=== PATIENT | female | born 1935 | race Caucasian/White ===

== ENCOUNTER 2016-08-21 13:52 | Emergency (ER) | payer BC, MEDICARE ==
[~2016-08-21] VITALS: Ht 162.6 cm; Wt 63.5 kg
--- NOTE | 2016-08-21 14:00 | NUR ---
PT DEEPTI FOR S/P TRIP AND FALL OUTSIDE vivit AND HIT HER FACE. NOTED LACERATION ABOVE UPPER LIP AND NOSE AREA. PT AAOX3. DENIES KO. DENIES ANY OTHER INJURY. VSYolanda. AT FOR EVAL. SAFETY AND COMFORT MEASURES PROVIDED. WILL MONITOR.
[2016-08-21] MEDS ORDERED: LIDOCAINE 1%-EPI 1:100,000 20 ML VIAL ONE (14:14)
[2016-08-21] MEDS ORDERED: HYDROCODONE/APAP 5/325MG 1 EACH TABLET ONE ×2 (14:14→16:44)
--- NOTE | 2016-08-21 14:27 | NUR ---
PT MEDICATED ORDERED.
[2016-08-21] MEDS ORDERED: HYDROCODONE/APAP 5/325MG 1 EACH TABLET PO ONE (14:30)
[2016-08-21] MEDS ORDERED: LIDOCAINE 1%-EPI 1:100,000 20 ML VIAL TP ONE (14:30)
[2016-08-21 15:58] LABS: HEMATOCRIT 40 % (33-45); HEMOGLOBIN 13.2 g/dL (11.5-14.8); MEAN CORPUSCULAR HEMOGLOBIN 30 PG (26.0-33.0); MEAN CORPUSCULAR HGB CONC 33 g/dl (31.0-36.0); MEAN CORPUSCULAR VOLUME 90 fL (82-100); NEUTROPHILS % (AUTO) 79.1 % (43.0-81.0); PLATELET COUNT (AUTO) 279 /CMM (150-450); RDW COEFFICIENT OF VARIATION 13.6 (11.5-15.0); RED BLOOD CELL COUNT(AUTO) 4.41 MIL/uL (4.0-5.2)
[2016-08-21 15:59] LABS: BASOPHILS # (AUTO) 0.1 /CMM (0.0-0.2); BASOPHILS % (AUTO) 0.7 % (0.0-2.0); EOSINOPHILS # (AUTO) 0.5 /CMM (0.0-0.7); EOSINOPHILS % (AUTO) 5.5 % (0.0-6.0); LYMPHOCYTES % (AUTO) 11.3 % (20.0-44.0); MONOCYTES # (AUTO) 0.3 /CMM (0.1-1.30); MONOCYTES % (AUTO) 3.4 % (2.0-12.0); NEUTROPHILS # (AUTO) 7.1 /CMM (1.8-8.9)
[2016-08-21 16:07] LABS: CALCIUM, SERUM 9.8 mg/dL (8.5-10.1); CREATININE 0.9 mg/dL (0.6-1.3); POTASSIUM 4.6 mmol/L (3.5-5.1)
[2016-08-21 16:09] LABS: INR 0.93 (0.87-1.13); PROTHROMBIN TIME 9.7 SECS (9.5-12.7)
[2016-08-21] MEDS ORDERED: TDAP [DIPH/PERTUSSIS/TET] 0.5 ML VIAL IM ONE ×2 (16:23→16:30)
--- NOTE | 2016-08-21 16:31 | NUR ---
WOUND CARE DONE BY AURORA GUAJARDO AT BS.
[2016-08-21] MEDS ORDERED: HYDROCODONE/APAP 5/325MG 1 EACH TABLET PO STA (16:35)
--- NOTE | 2016-08-21 16:41 | NUR ---
CALLED ROBBIE TO READ CT
--- NOTE | 2016-08-21 17:00 | NUR ---
PA AT BS FOR WOUND CARE/SUTURE.
[2016-08-21 17:35] VITALS: BP 116/78
[2016-08-21] MEDS ORDERED: BACITRACIN ZINC OINT PACKET 1 EA PACKET TP ONE (17:44)
--- NOTE | 2016-08-21 17:50 | NUR ---
Note james in EDM - 08/21/16 at 1810 by ZAC Patient discharged to home in stable condition. Written and verbal after care instructions given. Patient verbalizes understanding of instruction. IV removed. Catheter intact and site benign. Pressure and 4x4 applied to site. No bleeding noted.
--- NOTE | 2016-08-21 18:10 | NUR ---
Patient discharged to home in stable condition. Written and verbal after care instructions given. Patient verbalizes understanding of instruction. Pt ambulatory with a steady gait.
== END 2016-08-21 18:11 | disposition home or self-care (01) ==
LOC: ER 13:54
DX: S02.2XXA Fracture of nasal bones, initial encounter for closed fracture (principal); S01.511A Laceration without foreign body of lip, initial encounter; S80.01XA Contusion of right knee, initial encounter; I10 Essential (primary) hypertension; E11.9 Type 2 diabetes mellitus without complications; I99.8 Other disorder of circulatory system; Z88.6 Allergy status to analgesic agent; W19.XXXA Unspecified fall, initial encounter; Y93.9 Activity, unspecified; Y92.89 Other specified places as the place of occurrence of the external cause; Y99.9 Unspecified external cause status
CPT/HCPCS: 12051; 36415; 70450; 70486; 72125; 73030; 73130 ×2; 73564 ×2; 80048; 85025; 85730; 90471; 90715; 99285; A4606; A6402; A6403; J3490; Z7610

== ENCOUNTER 2016-08-27 11:03 | Emergency (ER) | payer MEDICARE, BC ==
[~2016-08-27] VITALS: Ht 162.6 cm; Wt 63.5 kg
[2016-08-27 11:03] VITALS: BP 125/69
== END 2016-08-27 11:58 | disposition home or self-care (01) ==
LOC: IVT 11:08
DX: S01.511D Laceration without foreign body of lip, subsequent encounter (principal); I10 Essential (primary) hypertension; E11.9 Type 2 diabetes mellitus without complications; Z88.5 Allergy status to narcotic agent
CPT/HCPCS: 99281; A4606; Z7502; Z7610

== ENCOUNTER 2016-09-02 13:00 | Emergency (ER) | payer MEDICARE, BC ==
[~2016-09-02] VITALS: Ht 154.9 cm; Wt 67.6 kg
[2016-09-02 13:04] VITALS: BP 121/53
== END 2016-09-02 14:08 | disposition home or self-care (01) ==
LOC: ER 13:03
DX: S01.511D Laceration without foreign body of lip, subsequent encounter (principal); W18.09XD Striking against other object with subsequent fall, subsequent encounter; I10 Essential (primary) hypertension; E11.9 Type 2 diabetes mellitus without complications; Z88.5 Allergy status to narcotic agent
CPT/HCPCS: A4606; Z7502; Z7610

== ENCOUNTER 2017-10-02 22:35 | Emergency (ER) | payer BC, OTHER ==
[~2017-10-02] VITALS: Ht 154.9 cm; Wt 78.9 kg
--- NOTE | 2017-10-02 22:35 | NUR ---
TO BED 8 BIB PARAMEDICS C/O SOB, OS SAT 90% PRE EMS REPORT, (+) PRODUCTIVE COUGH NOTED. CRACKLES HEARD BILATERALLY ON AUSCULTATION. PT AAOX4, PLACE PT ON CARDIAC MONITORING, CONTINUOUS POX, O2@2L/NC, O2 SAT 95%. ER MD AT BEDSIDE TO EVAL PT WITH ORDERS RECEIVED. WILL CARRY OUT ORDERS.
--- NOTE | 2017-10-02 22:43 | NUR ---
CALLED RADIOLOGY FOR STAT CXR PER DR. MEADE.
[2017-10-02 23:02] LABS: HEMATOCRIT 37 % (33-45); HEMOGLOBIN 12.5 g/dL (11.5-14.8); LYMPHOCYTES % (AUTO) 13.4 % (20.0-44.0); MEAN CORPUSCULAR HGB CONC 34 g/dl (31.0-36.0); MEAN CORPUSCULAR VOLUME 89 fL (82-100); MONOCYTES % (AUTO) 4.1 % (2.0-12.0); NEUTROPHILS % (AUTO) 79.1 % (43.0-81.0); PLATELET COUNT (AUTO) 260 /CMM (150-450); RDW COEFFICIENT OF VARIATION 14.4 (11.5-15.0); RED BLOOD CELL COUNT(AUTO) 4.11 MIL/uL (4.0-5.2); WHITE BLOOD COUNT (AUTO) 9.1 K/uL (4.3-11.0)
[2017-10-02 23:03] LABS: BASOPHILS # (AUTO) 0.1 /CMM (0.0-0.2); BASOPHILS % (AUTO) 0.7 % (0.0-2.0); EOSINOPHILS % (AUTO) 2.7 % (0.0-6.0); LYMPHOCYTES # (AUTO) 1.2 /CMM (0.8-4.8); MONOCYTES # (AUTO) 0.4 /CMM (0.1-1.30); NEUTROPHILS # (AUTO) 7.2 /CMM (1.8-8.9)
--- NOTE | 2017-10-02 23:03 | NUR ---
PATIENTS , SYLVESTER, CALLED TO SEE THE STATUS ON HIS . TOLD HIM THAT WE WOULD GIVE HIM A CALL BACK. PHONE NUMBER: [phone].
[2017-10-02] MEDS ORDERED: ACETAMINOPHEN ES 500 MG TABLET ONE (23:09)
[2017-10-02 23:15] LABS: CALCIUM, SERUM 8.4 mg/dL (8.5-10.1); CARBON DIOXIDE 25 mmol/L (21-32); CHLORIDE 104 mmol/L (98-107); CREATININE 0.8 mg/dL (0.6-1.3); GLUCOSE 127 mg/dL (74-106); POTASSIUM 4.1 mmol/L (3.5-5.1); SODIUM SERUM 138 mmol/L (136-145); UREA NITROGEN, BLOOD 15 mg/dL (7-18)
[2017-10-02 23:18] LABS: INR 0.87 (0.87-1.13)
[2017-10-02 23:23] LABS: ALBUMIN 2.9 g/dL (3.4-5.0); BILIRUBIN,DIRECT 0.1 mg/dL (0.0-0.2); BILIRUBIN,TOTAL 0.2 mg/dL (0.2-1.0); TOTAL PROTEIN, SERUM 6.8 g/dL (6.4-8.2)
[2017-10-02 23:24] LABS: TROPONIN I < 0.017 ng/mL (0.00-0.056)
[2017-10-02] MEDS ORDERED: ACETAMINOPHEN ES 500 MG TABLET PO ONE (23:30)
[2017-10-02] MEDS ORDERED: methylPREDNISolone SOD SUCC 125 MG/2ML VIAL ONE (23:41)
--- NOTE | 2017-10-02 23:41 | NUR ---
[facility] CALLED FOR TRANSFER. WAITING FOR MD CALL BACK .
--- NOTE | 2017-10-02 23:45 | NUR ---
RT AT BEDSIDE TO GIVE HHN TX.
[2017-10-02] MEDS ORDERED: ALBUTEROL FS 2.5 MG/3 ML VIAL.NEB ONE (23:54)
[2017-10-02] MEDS ORDERED: IPRATROPIUM NEB FS 0.5 MG/2.5 ML AMPUL.NEB ONE (23:54)
[2017-10-03] MEDS ORDERED: methylPREDNISolone SOD SUCC 125 MG/2ML VIAL IV ONE
[2017-10-03] MEDS ORDERED: IPRATROPIUM NEB FS 0.5 MG/2.5 ML AMPUL.NEB NEB ONE
[2017-10-03] MEDS ORDERED: ALBUTEROL FS 2.5 MG/3 ML VIAL.NEB NEB ONE
--- NOTE | 2017-10-03 00:15 | NUR ---
AURORA NOBLES TALKING TO JIMENEZ JULES MD.
--- NOTE | 2017-10-03 02:20 | NUR ---
SPOKE TO [facility] TRANSFER INFO RECEIVED. PT WILL BE GOING TO [facility] [id number], ACCEPTING MD. JAMMIE Montelongo PHONE NUMBER FOR REPORT . WILL CALL FOR REPORT.
--- NOTE | 2017-10-03 02:40 | NUR ---
REPORT CALLED TO [facility] LITTLE PEDERSON. AWAITING [facility].
--- NOTE | 2017-10-03 03:31 | NUR ---
[facility] TRANSPORT AT BEDSIDE REPORT GIVEN TO SHROUD LINE TIER
[2017-10-03 03:39] VITALS: BP 127/58
== END 2017-10-03 03:40 | disposition short-term general hospital (02) ==
LOC: ER 22:36
DX: J90 Pleural effusion, not elsewhere classified (principal); R06.03 Acute respiratory distress; J91.0 Malignant pleural effusion; E11.9 Type 2 diabetes mellitus without complications; I10 Essential (primary) hypertension; J44.9 Chronic obstructive pulmonary disease, unspecified; Z85.118 Personal history of other malignant neoplasm of bronchus and lung; Z88.5 Allergy status to narcotic agent; Z60.2 Problems related to living alone
CPT/HCPCS: 36415; 71045-TC; 80048-TC; 80076-TC; 83605-TC; 84484-TC; 85025-TC; 85730-TC; 87040-TC; A4606; J2930; Z7610

== ENCOUNTER 2018-07-02 04:27 | Emergency (ER) | payer BC, OTHER ==
[~2018-07-02] VITALS: Ht 160 cm; Wt 68.0 kg
--- NOTE | 2018-07-02 04:35 | NUR ---
PT BIBRA C/C ABD PAIN X 2 HRS. -N/V, -DIZZINESS, -SOB. PT AOX4. PT ON MONITOR IN BED 9 WITH FAMILY AT BEDSIDE. WILL CONTINUE TO MONITOR.
--- NOTE | 2018-07-02 04:36 | NUR ---
AT BEDSIDE FOR EVAL
--- NOTE | 2018-07-02 04:44 | NUR ---
BLOOD DRAWN AND GIVEN TO LAB
--- NOTE | 2018-07-02 04:45 | NUR ---
RADIOLOGY AT BEDSIDE FOR XRAY
[2018-07-02] MEDS ORDERED: ONDANSETRON HCL/PF 4 MG/2 ML VIAL ONE (04:48)
[2018-07-02] MEDS ORDERED: FENTANYL PF 100MCG/2ML AMPUL ONE ×2 (04:48→05:29)
--- NOTE | 2018-07-02 04:49 | NUR ---
TECH AT BEDSIDE FOR EKG
[2018-07-02 04:52] LABS: BASOPHILS # (AUTO) 0.1 /CMM (0.0-0.2); BASOPHILS % (AUTO) 0.5 % (0.0-2.0); EOSINOPHILS % (AUTO) 2.3 % (0.0-6.0); HEMATOCRIT 32 % (33-45); HEMOGLOBIN 10.6 g/dL (11.5-14.8); LYMPHOCYTES # (AUTO) 0.3 /CMM (0.8-4.8); LYMPHOCYTES % (AUTO) 3.2 % (20.0-44.0); MEAN CORPUSCULAR HGB CONC 34 g/dl (31.0-36.0); MEAN CORPUSCULAR VOLUME 89 fL (82-100); MONOCYTES # (AUTO) 0.2 /CMM (0.1-1.30); MONOCYTES % (AUTO) 1.8 % (2.0-12.0); NEUTROPHILS # (AUTO) 10.1 /CMM (1.8-8.9); NEUTROPHILS % (AUTO) 92.2 % (43.0-81.0); PLATELET COUNT (AUTO) 231 /CMM (150-450); RED BLOOD CELL COUNT(AUTO) 3.55 MIL/uL (4.0-5.2)
[2018-07-02] MEDS ORDERED: ONDANSETRON HCL/PF 4 MG/2 ML VIAL IV ONE (05:00)
[2018-07-02] MEDS ORDERED: IV NS 0.9% 1,000 ML BAG IV ONE (05:00)
[2018-07-02] MEDS ORDERED: FENTANYL PF 100MCG/2ML AMPUL IV ONE ×2 (05:00→05:30)
[2018-07-02 05:01] LABS: CALCIUM, SERUM 9.1 mg/dL (8.5-10.1); CARBON DIOXIDE 28 mmol/L (21-32); CHLORIDE 100 mmol/L (98-107); CREATININE 0.9 mg/dL (0.6-1.3); GLUCOSE 178 mg/dL (74-106); POTASSIUM 3.4 mmol/L (3.5-5.1); SODIUM SERUM 137 mmol/L (136-145); UREA NITROGEN, BLOOD 14 mg/dL (7-18)
[2018-07-02 05:09] LABS: ALANINE AMINOTRANSFERASE 20 U/L (12-78); ALBUMIN 3.3 g/dL (3.4-5.0); ALKALINE PHOSPHATASE 94 U/L (46-116); ASPARTATE AMINOTRANSFERASE 16 U/L (15-37); BILIRUBIN,DIRECT 0.1 mg/dL (0.0-0.2); BILIRUBIN,TOTAL 0.3 mg/dL (0.2-1.0)
[2018-07-02 05:13] LABS: LIPASE 1933 U/L (73-393)
--- NOTE | 2018-07-02 05:25 | NUR ---
CALLED [facility] TRANSFER REQUEST.
[2018-07-02] MEDS ORDERED: VANCOMYCIN 1 GM in IV D5W 250 ML IV ONE (05:30)
[2018-07-02] MEDS ORDERED: PIPERACILLIN /TAZOBACTAM 3.375 G in IV D5W 50 ML IV ONE (05:30)
--- NOTE | 2018-07-02 05:33 | NUR ---
DR. MORENO SPOKE WITH [facility]
--- NOTE | 2018-07-02 05:34 | NUR ---
DR MAGAÑA IS THE ACCEPTING AT [facility]UROR[facility] NO[facility].
[2018-07-02] MEDS ORDERED: PIPERACILLIN /TAZOBACTAM 3.375 G VIAL IV ONE (05:43)
[2018-07-02] MEDS ORDERED: FAMOTIDINE/PF INJ 20 MG/2 ML VIAL IV ONE ×2 (05:43→06:00)
[2018-07-02] MEDS ORDERED: VANCOMYCIN 1 GM VIAL ONE (05:43)
--- NOTE | 2018-07-02 06:15 | NUR ---
URINE COLLECTED AND SENT TO LAB
[2018-07-02 06:24] LABS: APPEARANCE,URINE CLEAR (CLEAR); BILIRUBIN,URINE NEGATIVE (NEGATIVE); BLOOD, URINE NEGATIVE Ery/uL (NEGATIVE); COLOR,URINE YELLOW (YELLOW); KETONES,URINE NEGATIVE (NEGATIVE); LEUKOCYTE ESTERASE ,URINE NEGATIVE (NEGATIVE); NITRITE, URINE NEGATIVE (NEGATIVE); PH,URINE 5.5 (5.0-8.0); PROTEIN,URINE NEGATIVE (NEGATIVE); UGLUCOSE NEGATIVE (NEGATIVE); UROBILINOGEN,URINE 0.2 EU/dL (0.2)
[2018-07-02] MEDS ORDERED: HYDROMORPHONE 1 MG/1 ML DISP.SYRIN IV ONE (06:30)
[2018-07-02] MEDS ORDERED: HYDROMORPHONE 1 MG/1 ML DISP.SYRIN ONE (06:32)
--- NOTE | 2018-07-02 06:35 | NUR ---
SPOKE WITH [facility], WILL CALL BACK WHEN THEY FIND INTERNAL MED MD TO ACCEPT.
[2018-07-02] MEDS ORDERED: LANS30CA54 PO (07:22)
[2018-07-02] MEDS ORDERED: SERT50TA PO (07:22)
[2018-07-02] MEDS ORDERED: LOSA25TA3 PO (07:22)
[2018-07-02] MEDS ORDERED: DOCU-141 PO (07:22)
[2018-07-02] MEDS ORDERED: CLOP75TA15 PO (07:22)
--- NOTE | 2018-07-02 07:27 | NUR ---
REPORT GIVEN TO LITTLE VALDIVIA FOR KIERAN
[2018-07-02 07:36] VITALS: BP 110/52
--- NOTE | 2018-07-02 07:38 | NUR ---
CALL BACK FROM ANNAMARIE W/ LISA INFO: GOING TO [facility],ROOM [id number],REPORT TO [phone],[facility] ETA AT 0815,ACCEPTED BY DR RIOS.
--- NOTE | 2018-07-02 07:58 | NUR ---
Report given to LITTLE Jean for [facility]
== END 2018-07-02 08:29 | disposition short-term general hospital (02) ==
LOC: ER 04:30
DX: A41.9 Sepsis, unspecified organism (principal); K85.90 Acute pancreatitis without necrosis or infection, unspecified; D72.829 Elevated white blood cell count, unspecified; E87.6 Hypokalemia; E88.09 Other disorders of plasma-protein metabolism, not elsewhere classified; E11.65 Type 2 diabetes mellitus with hyperglycemia; R74.8 Abnormal levels of other serum enzymes; J45.909 Unspecified asthma, uncomplicated; Z85.118 Personal history of other malignant neoplasm of bronchus and lung; Z88.5 Allergy status to narcotic agent; Z60.2 Problems related to living alone
CPT/HCPCS: 36415; 71045; 80048; 80076; 81001; 83605; 83690; 84484; 85025; 85730; 87040 ×2; 87086; 93005 ×2; 96361; 96365; 96367; 96375; 96376; 99291; A4606; J1170; J2405; J2543; J3010 ×2; J3370; J3490; J7030; 81000-TC; J7060

== ENCOUNTER 2020-06-04 07:18 | Inpatient (IN) | payer OTHER ==
[~2020-06-04] VITALS: Ht 154.9 cm; Wt 40.8 kg
[~2020-06-04 07:18] MED LIST: CLOP75TA15 PO; DOCU-141 PO; LANS30CA54 PO; LOSA25TA3 PO; SERT50TA PO
--- NOTE | 2020-06-04 07:25 | NUR ---
JOE FROM HOME C/O COUGH AND SOB X2 DAYS. PATIENT A/OX4, ON 15LPM VIA NRB, ATTACHED TO THE NEWS COPY EDITOR. NEEDS ATTENDED. KEPT COMFORTABLE.
--- NOTE | 2020-06-04 08:05 | NUR ---
IV LINE ESTABLISHED, BLOOD DRAWN AND SENT TO LAB. ATG ARCHITECT AT BEDSIDE FOR XRAY.
[2020-06-04] MEDS ORDERED: DEXAMETHASONE SOD PHOSPHATE 10 MG/ML VIAL ONE (08:10)
[2020-06-04 08:16] LABS: BASOPHILS % (AUTO) 0.1 % (0.0-2.0); EOSINOPHILS % (AUTO) 0.2 % (0.0-6.0); HEMATOCRIT 31 % (33-45); HEMOGLOBIN 10.2 g/dL (11.5-14.8); LYMPHOCYTES # (AUTO) 0.5 /CMM (0.8-4.8); LYMPHOCYTES % (AUTO) 5.3 % (20.0-44.0); MEAN CORPUSCULAR HGB CONC 33 g/dl (31.0-36.0); MEAN CORPUSCULAR VOLUME 103 fL (82-100); MONOCYTES # (AUTO) 0.2 /CMM (0.1-1.30); MONOCYTES % (AUTO) 2.5 % (2.0-12.0); NEUTROPHILS # (AUTO) 7.9 /CMM (1.8-8.9); NEUTROPHILS % (AUTO) 91.9 % (43.0-81.0); PLATELET COUNT (AUTO) 166 /CMM (150-450); RED BLOOD CELL COUNT(AUTO) 3.01 MIL/uL (4.0-5.2); WHITE BLOOD COUNT (AUTO) 8.6 K/uL (4.3-11.0)
[2020-06-04 08:26] LABS: CALCIUM, SERUM 9.7 mg/dL (8.5-10.1); CARBON DIOXIDE 22 mmol/L (21-32); CHLORIDE 101 mmol/L (98-107); CREATININE 0.8 mg/dL (0.6-1.3); GLUCOSE 121 mg/dL (74-106); POTASSIUM 4.8 mmol/L (3.5-5.1); SODIUM SERUM 136 mmol/L (136-145); UREA NITROGEN, BLOOD 47 mg/dL (7-18)
[2020-06-04] MEDS ORDERED: CEFTRIAXONE 1 G in IV D5W 50 ML IV ONE (08:30)
[2020-06-04] MEDS ORDERED: DEXAMETHASONE SOD PHOSPHATE 10 MG/ML VIAL IV ONE (08:30)
[2020-06-04] MEDS ORDERED: AZITHROMYCIN 500 MG in IV D5W 250 ML IV ONE (08:30)
--- NOTE | 2020-06-04 08:36 | NUR ---
lab called lactic acid 2.6 dr. Abad made aware.
[2020-06-04 08:41] LABS: ALANINE AMINOTRANSFERASE 23 U/L (12-78); ALBUMIN 2.8 g/dL (3.4-5.0); ALKALINE PHOSPHATASE 211 U/L (46-116); ASPARTATE AMINOTRANSFERASE 59 U/L (15-37); B-TYPE NATRIURETIC PEPTIDE 409 PG/ML (0-125); BILIRUBIN,TOTAL 0.5 mg/dL (0.2-1.0); TOTAL PROTEIN, SERUM 7.3 g/dL (6.4-8.2)
[2020-06-04 08:51] LABS: ABG BASE EXCESS -4.1 mmol/L; ABG OXYGEN SATURATION 95.7 % (92.0-98.5); ABG PCO2 37.3 mmHg (35.0-45.0); ABG PH 7.365 (7.350-7.450); ABG PO2 88.5 mmHg (75.0-100.0); AaDO2 442.7 mmHg; COHb 1.6 % (0.5-1.5); MetHb 0.3 % (0.0-1.5); O2Hb 93.9 % (94.0-97.0); SITE, ABG Right Radial; VENT MODE, BG 12L NRB
[2020-06-04 08:52] LABS: D-DIMER 5.27 mg/L(FEU (0.17-0.50)
[2020-06-04] MEDS ORDERED: IV NS 0.9% 1,000 ML BAG IV ONE (09:00)
[2020-06-04] MEDS ORDERED: CT SWABBABLE VALVE TRANS SET 1 EA INFUS.SET MC ONE (09:19)
[2020-06-04] MEDS ORDERED: IV NS 0.9% 250 ML IV ONE (09:19)
[2020-06-04] MEDS ORDERED: IOHEXOL-350 100 ML VIAL IV ONE (09:19)
[2020-06-04 09:27] LABS: CREATINE KINASE, TOTAL 52 U/L (26-192); FERRITIN 1816 ng/mL (8-388)
--- NOTE | 2020-06-04 09:33 | NUR ---
[facility] CALLED 135/58 [place] 99 100% MD WILL CALL DR. MABRY BACK.
--- NOTE | 2020-06-04 09:40 | NUR ---
RECEIVED A CALL BACK FROM NUEVO DR. BAILEY AND SPOKE TO DR. MABRY. PATIENT TAKEN TO CT.
--- NOTE | 2020-06-04 10:18 | NUR ---
[facility] CALLED BOAT AND PLANT UTILITY SUPERVISOR PAGED. KENDRA
--- NOTE | 2020-06-04 10:41 | NUR ---
CALLED DAUGHTED AND TO UPDATE THEM ON STATUS OF PATIENT
[2020-06-04 11:05] LABS: BILIRUBIN,DIRECT 0.2 mg/dL (0.0-0.2)
[2020-06-04 13:27] LABS: BILIRUBIN,URINE NEGATIVE (NEGATIVE); COLOR,URINE YELLOW (YELLOW); LEUKOCYTE ESTERASE ,URINE NEGATIVE (NEGATIVE); NITRITE, URINE NEGATIVE (NEGATIVE); PH,URINE 5.5 (5.0-8.0); PROTEIN,URINE NEGATIVE (NEGATIVE); UGLUCOSE NEGATIVE (NEGATIVE); UROBILINOGEN,URINE 0.2 EU/dL (0.2)
[2020-06-04] MEDS ORDERED: ENOXAPARIN SODIUM 40 MG/0.4 ML DISP.SYRIN SQ SCH (14:00)
[2020-06-04] MEDS ORDERED: VANCOMYCIN 1 GM in IV D5W 250 ML IV ONE (14:00)
[2020-06-04] MEDS ORDERED: ENOXAPARIN SODIUM 40 MG/0.4 ML DISP.SYRIN SQ ONE (14:30)
[2020-06-04] MEDS: ENOXAPARIN SODIUM 40 MG/0.4 ML DISP.SYRIN SQ SCH (14:35)
[2020-06-04] MEDS ORDERED: PIPERACILLIN /TAZOBACTAM 3.375 G in IV D5W 50 ML IV ONE (15:00)
[2020-06-04] MEDS ORDERED: BENZOIN COMPOUND TINCT 60 ML BOTTLE ONE (15:15)
[2020-06-04] MEDS ORDERED: MAG HYDROX/AL HYDROX/SIMETH 30 ML UDC PO PRN (15:30)
[2020-06-04] MEDS ORDERED: MAGNESIUM HYDROXIDE 30 ML UDC PO PRN (15:30)
[2020-06-04] MEDS ORDERED: Z GUARD REMEDY 2 OZ OINT TP PRN (15:30)
[2020-06-04] MEDS ORDERED: ONDANSETRON HCL/PF 4 MG/2 ML VIAL IVP PRN (15:30)
[2020-06-04] MEDS ORDERED: HYDROCODONE/APAP 5/325MG TABLET PO PRN (15:30)
[2020-06-04] MEDS ORDERED: ZOLPIDEM TARTRATE 5 MG TABLET PO PRN (15:30)
--- NOTE | 2020-06-04 16:34 | NUR ---
PATIENT CONTINUES ON 15LPM VIA NRB WITH PULSE OX OF 100%. RESTING, NEEDS ATTENDED. KEPT COMFORTABLE. WILL CONTINUE TO MONITOR.
--- NOTE | 2020-06-04 19:24 | NUR ---
PATIENT REPORTED COUGHING UP BLOOD. WILL INFORM .
[2020-06-04] MEDS: PIPERACILLIN /TAZOBACTAM 3.375 G in IV D5W 100 ML IV SCH (21:00)
--- NOTE | 2020-06-04 21:30 | NUR ---
RT pt received on mechanical vent with current settings. trached, portex 8. vent plugged in to red outlet. trach secure and patent. ambu bag and spare trach at bedside. has MDI tx accdto transport RT. alarms on and audible. small thompson thick secretions suctioned via trach. no sob, no resp distress. will continue to monitor t/o shift. Addendum: 06/04/20 at 2131 by SUHAIL FLORES RT Amended: Links added. Addendum: 06/04/20 at 2153 by SUHAIL FLORES RT wrong pt.
--- NOTE | 2020-06-04 21:45 | NUR ---
KAREN ALICIA DNP NOTIFIED OF PATIENT'S COUGHING OF BRIGHT RED BLOOD WITH PHLEGM.
[2020-06-04] MEDS: SERTRALINE HCL 50 MG TABLET PO SCH (22:00)
[2020-06-04] MEDS: DOCUSATE SODIUM 100 MG CAPSULE PO SCH (22:00)
[2020-06-04] MEDS ORDERED: GUAIFENESIN/CODEINE 10 ML UDC ONE (22:59)
[2020-06-04] MEDS ORDERED: GUAIFENESIN/CODEINE 10 ML UDC PO PRN (23:00)
[2020-06-05] MEDS: VANCOMYCIN 500 MG in IV D5W 100 ML IV SCH ×2 (02:00→14:59)
[2020-06-05 04:32] LABS: BASOPHILS % (AUTO) 0.1 % (0.0-2.0); HEMATOCRIT 24 % (33-45); HEMOGLOBIN 8.1 g/dL (11.5-14.8); LYMPHOCYTES # (AUTO) 0.2 /CMM (0.8-4.8); LYMPHOCYTES % (AUTO) 3.8 % (20.0-44.0); MEAN CORPUSCULAR HGB CONC 34 g/dl (31.0-36.0); MEAN CORPUSCULAR VOLUME 100 fL (82-100); MONOCYTES # (AUTO) 0.2 /CMM (0.1-1.30); MONOCYTES % (AUTO) 4.3 % (2.0-12.0); NEUTROPHILS # (AUTO) 4.7 /CMM (1.8-8.9); NEUTROPHILS % (AUTO) 91.8 % (43.0-81.0); PLATELET COUNT (AUTO) 132 /CMM (150-450); RED BLOOD CELL COUNT(AUTO) 2.35 MIL/uL (4.0-5.2); WHITE BLOOD COUNT (AUTO) 5.1 K/uL (4.3-11.0)
[2020-06-05 04:49] LABS: CHOLESTEROL 194 mg/dL (<200); HDL CHOLESTEROL 44 mg/dL (40-60); LDL 125 mg/dL (0-99); TRIGLYCERIDES 168 mg/dL (30-150)
[2020-06-05 04:50] LABS: CALCIUM, SERUM 8.7 mg/dL (8.5-10.1); CARBON DIOXIDE 22 mmol/L (21-32); CHLORIDE 102 mmol/L (98-107); CREATININE 0.8 mg/dL (0.6-1.3); GLUCOSE 146 mg/dL (74-106); MAGNESIUM 1.8 mg/dL (1.8-2.4); PHOSPHORUS 2.8 mg/dL (2.5-4.9); POTASSIUM 4.5 mmol/L (3.5-5.1); SODIUM SERUM 137 mmol/L (136-145); UREA NITROGEN, BLOOD 36 mg/dL (7-18)
[2020-06-05] MEDS: PIPERACILLIN /TAZOBACTAM 3.375 G in IV D5W 100 ML IV SCH ×3 (05:00→20:51)
--- NOTE | 2020-06-05 07:24 | NUR ---
REPORT GIVEN TO NORMA FITCH FOR KIERAN.
[2020-06-05] MEDS: PANTOPRAZOLE 40 MG TABLET.DR PO SCH (08:30)
[2020-06-05] MEDS ORDERED: DEXAMETHASONE SOD PHOSPHATE 10 MG/ML VIAL ONE (08:51)
[2020-06-05] MEDS ORDERED: ENOXAPARIN SODIUM 40 MG/0.4 ML DISP.SYRIN SQ ONE (08:51)
[2020-06-05] MEDS ORDERED: PANTOPRAZOLE 40 MG TABLET.DR PO ONE (08:52)
[2020-06-05] MEDS ORDERED: CLOPIDOGREL BISULFATE 75 MG TABLET ONE (08:52)
[2020-06-05] MEDS ORDERED: LOSARTAN POTASSIUM 25 MG TABLET ONE (08:52)
[2020-06-05] MEDS: LOSARTAN POTASSIUM 25 MG TABLET PO SCH (09:19)
[2020-06-05] MEDS: CLOPIDOGREL BISULFATE 75 MG TABLET PO SCH (09:19)
[2020-06-05] MEDS: DEXAMETHASONE SOD PHOSPHATE 10 MG/ML VIAL IV SCH (09:19)
[2020-06-05] MEDS: ENOXAPARIN SODIUM 40 MG/0.4 ML DISP.SYRIN SQ SCH (09:20)
--- NOTE | 2020-06-05 10:09 | NUR ---
PATIENT A/OX4, CONTINUES TO BE ON 15LPM VIA NRB WITH SPO2 OF 100%. ATTEMPTED TO WEAN OFF PATIENT BUT PATIENT QUICKLY DESATTED TO 70S. PATIENT UNABLE TO TOLERATE NOT HAVING THE NRB.
--- NOTE | 2020-06-05 10:40 | NUR ---
REPORT GIVEN TO GLORY FITCH FOR KIERAN.
--- NOTE | 2020-06-05 10:59 | NUR ---
PATIENT TRANSFERRED TO ROOM 111-1 VIA ACLS PROTOCOL. NO DISTRESS NOTED.
[2020-06-05 11:00] VITALS: BP 149/60
--- NOTE | 2020-06-05 11:00 | NUR ---
TELE-1 RN NOTES [facility] Patient is alert and oriented x 4. On 15 liters 02 via non rebreather mask with 02 saturation reading of 100%. Patient did not have any s/sx of respiratory distress. No c/o pain or discomfort. Tele box attached upon arrival. Initial assessment done and skin intact. Patient's head of bed kept elevated. Call light with in reach. Bed in lowest and locked position. Will continue to monitor.
[2020-06-05 12:00] VITALS: BP 128/73
[2020-06-05 16:00] VITALS: BP 137/68
--- NOTE | 2020-06-05 18:41 | NUR ---
Tele-1 RN CLOSING NOTES Patient in bed and not showing any s/sx of respiratory distress. Patient is alert and oriented x 4. On 15 liters 02 via non rebreather mask with 02 saturation reading of 99-100%. No c/o pain or discomfort. Patient's tele readings of SR. Patient's head of bed kept elevated. Call light with in reach. Bed in lowest and locked position. Will continue to monitor.
--- NOTE | 2020-06-05 19:10 | NUR ---
RN OPENING NOTES: RECEIVED PT A/OX 4 IN BED RESTING COMFORTABLY. PATIENT IN NO S/SX OF ACUTE DISTRESS AT THIS TIME. NO SOB NOTED. PATIENT'S BREATHING IS EVEN AND UNLABORED. PATIENT IS ON 15 L OF OXYGEN VIA NB MASKS; TOLERATING WELL. PATIENT ON TELE MONITORING READING SINUS RHYTHM HR IS @90s AT THE TIME OF RECEIVED NOTED IV SITE ON R AC #18 AND R HAND #20 ; BOTH PATENT, INTACT AND FLUSHING WELL; NO S/S OF INFECTION OR INFILTRATION. SAFETY MEASURES HAVE BEEN PROVIDED AND IMPLEMENTED. PATIENT BED ALARM IS ON. HEAD OF BED ELEVATED. BED IS LOCKED, IN LOWEST POSITION AND SIDE RAILS UP. CALL LIGHT WITHIN REACH OF THE PATIENT. APPLICABLE ISOLATION PRECAUTIONS IN PLACE. WILL CONTINUE TO MONITOR AND REASSESS FOR ANY CHANGES AND WILL CARRY OUT ANY ONGOING AND ACTIVE MD ORDER.
[2020-06-05 20:00] VITALS: BP 140/66
[2020-06-05] MEDS: DOCUSATE SODIUM 100 MG CAPSULE PO SCH (21:26)
[2020-06-05] MEDS: SERTRALINE HCL 50 MG TABLET PO SCH (21:26)
--- NOTE | 2020-06-05 23:00 | NUR ---
RN NOTES PATIENT REMAINS IN NO ACUTE RESPIRATORY DISTRESS AT THIS TIME, NO CHANGES TO CONDITION/STATUS. LICENSING WORKER WELL AWARE. WILL CONTINUE TO MONITOR AND REASSESS FOR ANY CHANGES THROUGHOUT THE SHIFT
[2020-06-06] VITALS (7 sets, daily range): BP systolic 140–146; BP diastolic 65–85
[2020-06-06] MEDS: VANCOMYCIN 500 MG in IV D5W 100 ML IV SCH ×2 (01:25→14:16)
[2020-06-06] MEDS: PIPERACILLIN /TAZOBACTAM 3.375 G in IV D5W 100 ML IV SCH ×3 (04:16→21:09)
--- NOTE | 2020-06-06 06:45 | NUR ---
RN CLOSING NOTE: PATIENT REMAINS IN ROOM. NO SIGNS OF RESPIRATORY DISTRESS. SAFETY MEASURES IMPLEMENTED, BED IN LOWEST POSITION, LOCKED, SIDE RAILS UP, CALL LIGHT WITHIN REACH. ALL NEEDS AND ORDERS ADDRESSED DURING THE SHIFT. IV ACCESS MAINTAINED INTACT, SECURED AND FLUSHING WELL. ALL DUE MEDS GIVEN ORDERED & SCHEDULED ; PATIENT TOLERATED WELL.PATIENT KEPT CLEAN AND COMFORTABLE WITHIN THE SHIFT. ENDORSED TO INCOMING SHIFT RN FOR CONTINUITY OF CARE.
[2020-06-06 07:27] LABS: BASOPHILS % (AUTO) 0.1 % (0.0-2.0); HEMATOCRIT 23 % (33-45); HEMOGLOBIN 7.8 g/dL (11.5-14.8); LYMPHOCYTES # (AUTO) 0.1 /CMM (0.8-4.8); LYMPHOCYTES % (AUTO) 2.4 % (20.0-44.0); MEAN CORPUSCULAR HGB CONC 35 g/dl (31.0-36.0); MEAN CORPUSCULAR VOLUME 99 fL (82-100); MONOCYTES # (AUTO) 0.2 /CMM (0.1-1.30); MONOCYTES % (AUTO) 3.9 % (2.0-12.0); NEUTROPHILS # (AUTO) 5.4 /CMM (1.8-8.9); NEUTROPHILS % (AUTO) 93.6 % (43.0-81.0); PLATELET COUNT (AUTO) 164 /CMM (150-450); RED BLOOD CELL COUNT(AUTO) 2.27 MIL/uL (4.0-5.2); WHITE BLOOD COUNT (AUTO) 5.7 K/uL (4.3-11.0)
[2020-06-06 07:57] LABS: CALCIUM, SERUM 8.9 mg/dL (8.5-10.1); CREATININE 0.8 mg/dL (0.6-1.3); PHOSPHORUS 2.7 mg/dL (2.5-4.9); POTASSIUM 3.8 mmol/L (3.5-5.1)
[2020-06-06 08:23] LABS: IRON, SERUM 28 ug/dl (50-175); TOTAL IRON BINDING CAPACITY 123 ug/dl (250-450)
[2020-06-06] MEDS: ENOXAPARIN SODIUM 40 MG/0.4 ML DISP.SYRIN SQ SCH (09:00)
[2020-06-06] MEDS: DEXAMETHASONE SOD PHOSPHATE 10 MG/ML VIAL IV SCH (09:07)
[2020-06-06] MEDS: ACETAMINOPHEN 325 MG TABLET PO PRN (09:13)
[2020-06-06] MEDS: LOSARTAN POTASSIUM 25 MG TABLET PO SCH (09:13)
[2020-06-06] MEDS: CLOPIDOGREL BISULFATE 75 MG TABLET PO SCH (09:14)
[2020-06-06] MEDS: PANTOPRAZOLE 40 MG TABLET.DR PO SCH (09:14)
--- NOTE | 2020-06-06 10:20 | NUR ---
TELE/RN OPENING RECEIVED PATIENT ON BED. AWAKE ALERT AND ORIENTED X 4. PATIENT IS ON 15L OXYGEN VIA NON REBREATHER . MASK. PATIENT IN NO APPARENT RESPIRATORY DISTRESS NOTED. NO COMPLAINED OF PAIN NOTED AT THIS TIME. TELE MONITOR READING SINUS TACHY 112 BPM. WILL CONTINUE TO MONITOR.
--- NOTE | 2020-06-06 18:48 | NUR ---
TELE/RN CLOSING NOTES PATIENT ON BED.ALERT AND ORIENTED X 4. PATIENT IS ON 15L OXYGEN. VIA NON REBREATHER MASK. PATIENT IN NO APPARENT RESPIRATORY DISTRESS NOTED. NO COMPLAINED OF PAIN NOTED AT THIS TIME. TELE MONITOR READING SINU RHYTHM/SINUS TACHY WITH PVC 112BPM SATURATION 99%. IV ACCESS AT RIGHT AC #18G AND RIGHT HAND # 20G PATENT AND INTACT. SEEN AND EXAMINED BY MD WITH ORDERS MADE AND CARRIED OUT. ALL DUE MEDICATION WAS GIVEN. SAFETY PRECAUTIONS WAS IN PLACED. BED IN LOWEST POSITION AND LOCKED. SIDE RAILS UP X2. CALL LIGHT WITHIN REACH. WILL ENDORSED TO DAIRY HAND FOR KIERAN.
--- NOTE | 2020-06-06 19:15 | NUR ---
RN OPENING NOTES: RECEIVED PT A/OX 4 IN BED RESTING COMFORTABLY. PATIENT IN NO S/SX OF ACUTE DISTRESS AT THIS TIME. NO SOB NOTED. PATIENT'S BREATHING IS EVEN AND UNLABORED. PATIENT IS ON 15L OF OXYGEN VIA NRB MASKS; TOLERATING WELL. PATIENT ON TELE MONITORING READING SINUS TACHY HR IS @100s AT THE TIME OF RECEIVED. NOTED IV SITE ON R AC #18 AND R HAND #20 ; BOTH PATENT, INTACT AND FLUSHING WELL; NO S/S OF INFECTION OR INFILTRATION. SAFETY MEASURES HAVE BEEN PROVIDED AND IMPLEMENTED. PATIENT BED ALARM IS ON. HEAD OF BED ELEVATED. BED IS LOCKED, IN LOWEST POSITION AND SIDE RAILS UP. CALL LIGHT WITHIN REACH OF THE PATIENT. APPLICABLE ISOLATION PRECAUTIONS IN PLACE. WILL CONTINUE TO MONITOR AND REASSESS FOR ANY CHANGES AND WILL CARRY OUT ANY ONGOING AND ACTIVE MD ORDER.
[2020-06-06] MEDS: DOCUSATE SODIUM 100 MG CAPSULE PO SCH (21:09)
[2020-06-06] MEDS: SERTRALINE HCL 50 MG TABLET PO SCH (21:09)
--- NOTE | 2020-06-06 22:00 | NUR ---
RN NOTES PATIENT REMAINS IN NO ACUTE RESPIRATORY DISTRESS AT THIS TIME, NO CHANGES TO CONDITION/STATUS. DRY HOUSE OPERATOR WELL AWARE. WILL CONTINUE TO MONITOR AND REASSESS FOR ANY CHANGES THROUGHOUT THE SHIFT
[2020-06-07] VITALS: BP 150/68
[2020-06-07] MEDS: VANCOMYCIN 500 MG in IV D5W 100 ML IV SCH ×2 (01:25→16:22)
[2020-06-07 04:00] VITALS: BP 142/71
[2020-06-07] MEDS: PIPERACILLIN /TAZOBACTAM 3.375 G in IV D5W 100 ML IV SCH ×3 (04:01→21:05)
[2020-06-07 06:36] LABS: CALCIUM, SERUM 8.8 mg/dL (8.5-10.1); CREATININE 0.8 mg/dL (0.6-1.3); MAGNESIUM 2.1 mg/dL (1.8-2.4); PHOSPHORUS 2.8 mg/dL (2.5-4.9); POTASSIUM 3.7 mmol/L (3.5-5.1)
--- NOTE | 2020-06-07 07:00 | NUR ---
PT RECEIVED IN BED ON 15L NRB. O2 SAT 100%. PT AOx4. PT ON MONITOR SHOWING SR 90s. PT SKIN INTACT WITH REDNESS. PT ON CARDIAC DIET. PT HAS RAC #18 AND RIGHT HAND #20. NO SIGNS OF INFECTION OR INFILTRATION. ALL SAFETY MEASURES IN PLACE. WILL CONTINUE TO MONITOR CLOSELY
[2020-06-07 08:00] VITALS: BP 143/68
[2020-06-07] MEDS: PANTOPRAZOLE 40 MG TABLET.DR PO SCH (09:51)
[2020-06-07] MEDS: LOSARTAN POTASSIUM 25 MG TABLET PO SCH (09:51)
[2020-06-07] MEDS: DEXAMETHASONE SOD PHOSPHATE 10 MG/ML VIAL IV SCH (09:51)
[2020-06-07 10:04] LABS: BASOPHILS % (AUTO) 0.2 % (0.0-2.0); HEMATOCRIT 24 % (33-45); HEMOGLOBIN 8.1 g/dL (11.5-14.8); LYMPHOCYTES # (AUTO) 0.1 /CMM (0.8-4.8); LYMPHOCYTES % (AUTO) 2.1 % (20.0-44.0); MEAN CORPUSCULAR HGB CONC 34 g/dl (31.0-36.0); MEAN CORPUSCULAR VOLUME 101 fL (82-100); MONOCYTES # (AUTO) 0.3 /CMM (0.1-1.30); MONOCYTES % (AUTO) 4.3 % (2.0-12.0); NEUTROPHILS # (AUTO) 5.7 /CMM (1.8-8.9); NEUTROPHILS % (AUTO) 93.4 % (43.0-81.0); PLATELET COUNT (AUTO) 196 /CMM (150-450); WHITE BLOOD COUNT (AUTO) 6.1 K/uL (4.3-11.0)
[2020-06-07 16:00] VITALS: BP 150/73
--- NOTE | 2020-06-07 17:00 | NUR ---
PER MD BATES ORDER, PT TITRATED FROM 15L NRB TO 10L SIMPLE MASK, PT ABLE TO TOLERATE 8L SIMPLE MASK WITH O2 SAT 95%, NO SOB. PT HOWEVER PREFERS TO WEAR THE 15L NRB. WILL ENDORSE TO ONCOMING RN.
--- NOTE | 2020-06-07 19:20 | NUR ---
RECEIVED PT ON BED AWAKE A/0X4 VERBALIZED NEEDS ON 15L NRB MASK SPO2 98% HAVE IV ON RIGHT AC # 18 AND RIGHT HAND #20 PATENT AND FLUSHED , ON DROPLET ISOLATION FOR COVID 19, SAFETY MEASURE MAINTAINED BED ON LOWEST POSITION AND LOCKED SIDE RAILS UP X2 CALL LIGHT WITHIN REACH WILL CONT TO MONITOR
--- NOTE | 2020-06-07 19:30 | NUR ---
PT REMAINS IN BED ON 15L NRB DESPITE BEING ABLE TO TOLERATE 8L SIMPLE MASK. PT DOWNGRADED TO MS STATUS. PT HAD POOR APPETITE, CONSUMING 25% OF MEALS. PT RAC 18 INTACT. PT NEW ONSET OF PINK-TINGED SPUTUM, ENDORSED TO ONCOMING RN. ALL SAFETY MEASURES IN PLACE. REPORT GIVEN TO IMANI FOR KIERAN
[2020-06-07 20:00] VITALS: BP 139/67
[2020-06-07] MEDS: SERTRALINE HCL 50 MG TABLET PO SCH (21:06)
[2020-06-07] MEDS: DOCUSATE SODIUM 100 MG CAPSULE PO SCH (21:06)
[2020-06-07] MEDS: ACETAMINOPHEN 325 MG TABLET PO PRN (23:34)
[2020-06-08] VITALS: BP 167/87
--- NOTE | 2020-06-08 00:52 | NUR ---
PT COMPLAINING OF SHE CANNOT BREATH, BUT HER SPO2 IS 100% WITH NRM 15L TRY TO SIT DOWN PATIENT ON THE BED AND REPORTED IT TO PRINCE ALICIA OUTPATIENT PSYCHIATRIST, SEEN BY KAREN ALICIA NP AND MADE AN ORDER FOR ATIVAN IV PRN FOR ANXIETY AND TO KEEP MONITORING THE PT, PT IS DNR DNI
[2020-06-08] MEDS ORDERED: LORAZEPAM INJ 2 MG/ML VIAL IV PRN (01:00)
[2020-06-08] MEDS: VANCOMYCIN 500 MG in IV D5W 100 ML IV SCH (01:22)
[2020-06-08] MEDS: ACETAMINOPHEN 325 MG TABLET PO PRN (01:42)
--- NOTE | 2020-06-08 03:00 | NUR ---
PT SPO2 IS 100% NO COMPLAINT OF NOT BREATHING ANYMORE WILL CONT TO MONITOR THE PT
[2020-06-08 04:00] VITALS: BP 123/83
[2020-06-08] MEDS: PIPERACILLIN /TAZOBACTAM 3.375 G in IV D5W 100 ML IV SCH (04:36)
--- NOTE | 2020-06-08 05:25 | NUR ---
TORCH OPERATOR CALLED MY ATTENTION BECAUSE WHEN SHE CHECKED THE PT CHANGE HER PT LOOKS LIKE UNRESPONSIVE, CHECKED THE PT AND INTRODUCE SOME PAIN TO STIMULI, PT STILL UNRESPONSIVE BUT STILL HAVE PULSE WITH THE RATE OF 60-70 VIA PALPATION ON CAROTID PULSE, HER SPO2 IS 98%, FRUIT CHECKER KAREN ALICIA MADE AWARE, FAMILY ALSO MADE AWARE
--- NOTE | 2020-06-08 05:45 | NUR ---
SEEN BY KAREN ALICIA CENTER HOLE REAMER AND CHECKED THE PATIENT, PT IS DNR DNI, KAREN ALICIA TALK TO THE FAMILY VIA PHONE AND DISCUSS THE SITUATION OF THE PT
--- NOTE | 2020-06-08 05:53 | NUR ---
KAREN ALICIA NP CONFIRMED WITH THE SON TENISHA # [phone] THAT THE PT IS DNR/DNI PER HER WISHES NOTED AND CARRIED OUT
--- NOTE | 2020-06-08 06:55 | NUR ---
PT ON BED STILL UNRESPONSIVE TO PAIN STIMULI STILL ON NON REBREATHER 15L WITH SPO2 85% HR IS 92, BED ON LOWEST POSITION AND LOCKED SIDE RAILS UP X2 PT DNR/DNI WILL CONT TO MONITOR
[2020-06-08 07:20] VITALS: BP 126/80
[2020-06-08] MEDS: PANTOPRAZOLE 40 MG TABLET.DR PO SCH (07:30)
--- NOTE | 2020-06-08 07:41 | NUR ---
MS RN OPENING NOTE PATIENT IS IN BED RESTING. PATIENT IS IN NO ACUTE DISTRESS. PATIENT IS ON OXYGEN 15L NON-REBREATHER MASK. NO SOB NOTED. SAFETY PRECAUTIONS ARE IN PLACE. BED IN THE LOWEST POSITION WITH SIDE RAILS UP. BED BREAK IS ON, CALL LIGHT WITHIN REACH. WILL CONTINUE TO MONITOR PATIENT CLOSELY THROUGH OUT THE SHIFT.
[2020-06-08 08:06] VITALS: BP 131/46
[2020-06-08] MEDS: DEXAMETHASONE SOD PHOSPHATE 10 MG/ML VIAL IV SCH (08:06)
[2020-06-08] MEDS: LOSARTAN POTASSIUM 25 MG TABLET PO SCH (08:06)
--- NOTE | 2020-06-08 09:00 | NUR ---
RN PATIENT EXPIRATION NOTE PATIENT 0815, NOTED WITH NO BREATHING, NO PULSE VERIFIED BY CHARGE NURSE JOHNNY AND JAVED FITCH. PRONOUNCED AT 0815 BY CHARGE NURSE JOHNNY. PATIENT CLEANED AND POST MORTEM CARE PROVIDED. INFORMED FAMILY GÉNESIS LEONEL, TENISHA LOOMIS , AND SYLVESTER CASTANEDA. PER FAMILY, [employer] IS SET UP. GAVE THEM NURSING ACID CONDITIONING WORKER PHONE NUMBER. PATIENT BELONGINGS TO BE PICKED UP BY FAMILY WITH NURSING ACID CONDITIONING WORKER. [facility] CALLED AND INFORMED SPOKE WITH SABINA Oglesby. REPORTED COVID POSITIVE. REFERRAL CASE NUMBER IS [id number]. SHE WAS KEPT CLEAN AND COMFORTABLE DURING MY CARE. DR. GARDNER INFORMED AND MADE AWARE. Addendum: 06/08/20 at 0934 by SPENCER HURTADO RN RN PATIENT EXPIRATION NOTE PATIENT 0815, NOTED WITH NO BREATHING, NO PULSE VERIFIED BY CHARGE NURSE JOHNNY AND JAVED FITCH. PRONOUNCED AT 0815 BY CHARGE NURSE JOHNNY. PATIENT DNR/DNI, CONFIRMED WITH FAMILIES WISHES. PATIENT CLEANED AND POST MORTEM CARE PROVIDED. INFORMED FAMILY GÉNESIS LEONEL, TENISHA LOOMIS , AND SYLVESTER CASTANEDA. PER FAMILY, [employer] IS SET UP. GAVE THEM NURSING ACID CONDITIONING WORKER PHONE NUMBER. PATIENT BELONGINGS TO BE PICKED UP BY FAMILY WITH NURSING ACID CONDITIONING WORKER. [employer] CALLED AND INFORMED SPOKE WITH SABINA Oglesby. REPORTED COVID POSITIVE. REFERRAL CASE NUMBER IS [id number]. SHE WAS KEPT CLEAN AND COMFORTABLE DURING MY CARE. DR. GARDNER INFORMED AND MADE AWARE.
== END 2020-06-08 08:49 | disposition expired | DRG 177 ==
LOC: ER 07:22 → TRANSITION 10:53 → TELE1 06-05 10:25 → MEDSG1 06-07 08:12
PROVIDERS: ADMIT Student in an Organized Health Care Education/Training Program; ATTEND Student in an Organized Health Care Education/Training Program
DX: U07.1 COVID-19 (principal); J96.01 Acute respiratory failure with hypoxia; J12.82 Pneumonia due to coronavirus disease 2019; J69.0 Pneumonitis due to inhalation of food and vomit; E87.2 Acidosis; E44.0 Moderate protein-calorie malnutrition; D68.69 Other thrombophilia; C34.90 Malignant neoplasm of unspecified part of unspecified bronchus or lung; Z68.1 Body mass index [BMI] 19.9 or less, adult; E86.0 Dehydration; E11.9 Type 2 diabetes mellitus without complications; I10 Essential (primary) hypertension; Z86.73 Personal history of transient ischemic attack (TIA), and cerebral infarction without residual deficits; Z87.891 Personal history of nicotine dependence; D64.9 Anemia, unspecified; Z92.21 Personal history of antineoplastic chemotherapy; E88.09 Other disorders of plasma-protein metabolism, not elsewhere classified; J43.9 Emphysema, unspecified; J45.909 Unspecified asthma, uncomplicated; D69.6 Thrombocytopenia, unspecified; Z66 Do not resuscitate
CPT/HCPCS: 36415; 36600; 71045-TC; 80048-TC; 80053-TC; 80061-TC; 80202-TC; 82248-TC; 82550-TC; 82728-TC; 82803-TC; 83540-TC; 83605-TC; 83735-TC; 83880; 84100-TC; 84484-TC; 85025-TC; 85378-TC; 85730-TC; 87040-TC; 87086-TC; C9803; G0378; J0456; J0696; J1100; J1650; J2405; J2543; J3370; J7030; J7050; J7060; Q9967; U0003